=== PATIENT | male | born 1965 | race Hispanic/Latino ===

== ENCOUNTER 2021-10-30 14:07 | Observation (INO) | payer OTHER ==
--- NOTE | 2021-10-30 15:09 | XRay Report ---
CHEST 1 VIEW 10/30/2021 2:02 PM INDICATION / CLINICAL INFORMATION: DIZZY/CP. COMPARISON: None available. FINDINGS: SUPPORT DEVICES: None. HEART / MEDIASTINUM: The heart size and pulmonary vasculature are normal. The aorta is normal in cassie maylin. LUNGS / PLEURA: No significant pulmonary or pleural abnormality. No pneumothorax. ADDITIONAL FINDINGS: No significant additional findings. IMPRESSION: No acute findings. Signer Name: Asad Willson MD Signed: 10/30/2021 3:04 PM Workstation Name: [email or web address]
[2021-10-30] MEDS ORDERED: SODIUM CHLORIDE 0.9% 1000 ML 1,000 ML IV ONE (15:22)
[2021-10-30 15:49] LABS: Basophils % (Auto) 0.4 % (0.0-1.8); Eosinophils # (Auto) 0.2 K/mm3 (0.0-0.4); Hematocrit 40.5 % (35.5-45.6); Hemoglobin 13.5 gm/dl (11.8-15.2); Lymphocytes # (Auto) 1.9 K/mm3 (1.2-5.4); Lymphocytes % (Auto) 17.1 % (13.4-35.0); Mean Corpuscular HGB Conc 33 % (32-34); Mean Corpuscular Volume 88 fl (84-94); Monocytes # (Auto) 0.8 K/mm3 (0.0-0.8); Monocytes % (Auto) 6.8 % (0.0-7.3); Platelet Count 218 K/mm3 (140-440); Red Blood Count 4.58 M/mm3 (3.65-5.03)
[2021-10-30 16:09] LABS: Creatine Kinase MB 1.4 ng/mL (0.0-4.0)
[2021-10-30 16:11] LABS: Alanine Aminotransferase 18 units/L (7-56); Albumin 3.9 g/dL (3.9-5); BUN/Creatinine Ratio 13; Blood Urea Nitrogen 12 mg/dL (9-20); Calcium 8.8 mg/dL (8.4-10.2); Hemolysis Index 11
--- NOTE | 2021-10-30 16:26 | Cat Scan Report ---
CT HEAD WITHOUT CONTRAST INDICATION / CLINICAL INFORMATION: Lightheadedness/Dizziness. TECHNIQUE: All CT scans at this location are performed using CT dose reduction for ALARA by means of automated e xposure control. COMPARISON: None available. FINDINGS: HEMORRHAGE: No evidence of intracranial hemorrhage or extra-axial fluid collection. EXTRA-AXIAL SPACES: Cortical sulci, sylvian fissures and basilar cisterns have an unremarkable appear ance. VENTRICULAR SYSTEM: The third and lateral ventricles are of normal size and configuration. CEREBRAL PARENCHYMA: No areas of abnormal brain parenchymal attenuation are identified. There is no i ndication of recent infarction. MIDLINE SHIFT OR HERNIATION: There is no mass effect. CEREBELLUM / BRAINSTEM: Brainstem and cerebellum have an unremarkable appearance. MIDLINE STRUCTURES:No abnormalities of the pituitary gland or pineal region are identified. INTRACRANIAL VESSELS:No abnormalities are identified on this noncontrast head CT. ORBITS: visualized portions of the orbits have an unremarkable appearance. SOFT TISSUES of HEAD: No significant abnormality. CALVARIUM: Evaluation of bone windows reveals no abnormalities. PARANASAL SINUSES / MASTOID AIR CELLS: Visualized portions of the paranasal sinuses are free from inf lammatory mucosal disease. Mastoid air cells are normally pneumatized. IMPRESSION: 1. Normal head CT without contrast. Signer Name: Alejandro Nicholas MD Signed: 10/30/2021 4:22 PM Workstation Name: [email or web address]
[2021-10-30 18:29] LABS: INR 0.97 (0.87-1.13)
--- NOTE | 2021-10-30 22:17 | Emergency Department Report ---
ED Dizziness HPI - General Chief Complaint: Dizziness Stated Complaint: DIZZINESS Time Seen by Provider: 10/30/21 15:14 Source: patient, EMS Mode of arrival: Stretcher Limitations: No Limitations - History of Present Illness Initial Comments: PT WAS PICKED UP WHILE DRIVING, C/O DIZZINESS X1 DAY. PT IS HAVING NEAR SYNCOPE EVENTS WITH CHEST PAIN , ONLY HAS htN ON LISINOPIL AND d3 VITAMIN MD Complaint: dizziness, lightheadedness -: Gradual, days(s) Timing: unsure History of Same: No History of Trauma: No Severity: mild - Related Data Allergies Allergy/AdvReac Type Severity Reaction Status Date / Time No Known Allergies Allergy Verified 10/30/21 14:10 ED Review of Systems ROS: Stated complaint: DIZZINESS Other details as noted in HPI Constitutional: denies: chills, fever Eyes: denies: eye pain, eye discharge, vision change ENT: denies: ear pain, throat pain Respiratory: denies: cough, shortness of breath, wheezing Cardiovascular: denies: chest pain, palpitations Endocrine: no symptoms reported Gastrointestinal: denies: abdominal pain, nausea, diarrhea Genitourinary: denies: urgency, dysuria Musculoskeletal: denies: back pain, joint swelling, arthralgia Skin: denies: rash, lesions Neurological: denies: headache, weakness, paresthesias Psychiatric: denies: anxiety, depression Hematological/Lymphatic: denies: easy bleeding, easy bruising ED Past Medical Hx - Past Medical History Hx Hypertension: Yes Hx Diabetes: Yes - Social History Smoking Status: Never Smoker ED Physical Exam - General Limitations: No Limitations General appearance: alert, in no apparent distress - Head Head exam: Present: atraumatic, normocephalic - Eye Eye exam: Present: normal appearance - ENT ENT exam: Present: mucous membranes moist - Neck Neck exam: Present: normal inspection - Respiratory Respiratory exam: Present: normal lung sounds bilaterally. Absent: respiratory distress - Cardiovascular Cardiovascular Exam: Present: regular rate, normal rhythm. Absent: systolic murmur, diastolic murmur, rubs, gallop - GI/Abdominal GI/Abdominal exam: Present: soft, normal bowel sounds - Rectal Rectal exam: Present: deferred - Extremities Exam Extremities exam: Present: normal inspection - Back Exam Back exam: Present: normal inspection - Neurological Exam Neurological exam: Present: alert, oriented X3 - Psychiatric Psychiatric exam: Present: normal affect, normal mood - Skin Skin exam: Present: warm, dry, intact, normal color. Absent: rash ED Course Vital Signs 10/30/21 10/30/21 10/30/21 14:09 14:45 15:00 Pulse Rate 96 H 78 Respiratory Rate Blood Pressure Blood Pressure 135/78 136/70 [Left] O2 Sat by Pulse 98 99 95 Oximetry 10/30/21 10/30/21 10/30/21 15:45 16:20 17:05 Pulse Rate 82 74 78 Respiratory Rate Blood Pressure Blood Pressure 129/62 123/62 127/64 [Left] O2 Sat by Pulse 96 96 96 Oximetry 10/30/21 10/30/21 10/30/21 17:40 18:06 20:01 Pulse Rate 78 78 77 Respiratory 20 Rate Blood Pressure Blood Pressure 127/77 123/62 [Left] O2 Sat by Pulse 99 95 Oximetry 10/30/21 10/30/21 10/30/21 20:15 20:31 20:45 Pulse Rate 70 69 77 Respiratory 16 19 13 Rate Blood Pressure Blood Pressure [Left] O2 Sat by Pulse 93 92 96 Oximetry 10/30/21 10/30/21 10/30/21 21:01 21:15 21:31 Pulse Rate 70 97 H 44 L Respiratory 18 12 Rate Blood Pressure 147/67 147/67 147/67 Blood Pressure [Left] O2 Sat by Pulse 93 95 95 Oximetry 10/30/21 10/30/21 21:45 22:01 Pulse Rate 75 71 Respiratory Rate Blood Pressure 147/67 147/67 Blood Pressure [Left] O2 Sat by Pulse 95 93 Oximetry ED Medical Decision Making - Lab Data Result diagrams: 10/30/21 15:30 10/30/21 15:30 Critical care attestation.: If time is entered above; I have spent that time in minutes in the direct care of this critically ill patient, excluding procedure time. ED Disposition Clinical Impression: Chest pain, Dizziness Disposition: ADMITTED INPATIENT Is pt being admited?: Yes Does the pt Need Aspirin: No Condition: Stable Instructions: Nonspecific Chest Pain, Adult Referrals: [facility] [Other] - 3-5 Days
[2021-10-30 22:18] LABS: Bilirubin,Urine NEG (Negative); Blood,Urine NEG (Negative); Color,Urine Straw (Yellow); Mucus,Urine FEW /HPF; Protein,Urine <15 mg/dL mg/dL (Negative); RBC,Urine < 1.0 /HPF (0.0-6.0); Urobilinogen,Urine < 2.0 mg/dL (<2.0); WBC,Urine < 1.0 /HPF (0.0-6.0)
[2021-10-30] MEDS ORDERED: ONDANSETRON 4 MG/2 ML INJ IV PRN (23:09)
[2021-10-30] MEDS ORDERED: MORPHINE 2 MG/1 ML INJ IV PRN (23:09)
[2021-10-30] MEDS ORDERED: ACETAMINOPHEN 325 MG TAB PO PRN ×2 (23:09)
[2021-10-30] MEDS ORDERED: traMADol 50 MG TAB PO PRN (23:09)
[2021-10-30] MEDS ORDERED: MAGNESIUM HYDROXIDE (MOM) ORAL LIQD UDC PO PRN (23:09)
[2021-10-30] MEDS ORDERED: DEXTROSE 50% IN WATER (25GM) 50 ML SYRINGE IV PRN (23:09)
[2021-10-30] MEDS ORDERED: MORPHINE 4 MG/1 ML INJ IV PRN ×2 (23:09)
--- NOTE | 2021-10-30 23:22 | History and Physical Report ---
History of Present Illness Date of examination: 10/30/21 Date of admission: 10/30/2021 Chief complaint: Dizziness Chest Pain History of present illness: 56-year-old male with significant past medical history of hypertension and diabetes mellitus presenting to the emergency room today for evaluation of lightheadedness and chest pain. Symptoms has been ongoing for the past 24 hours. He has felt so dizzy and had a near syncopal episode today. He denies any fever or chills, no nausea vomiting and no abdominal pain. Denies any headache but has been diaphoretic. Patient denies any sick contacts and no recent travel. Denies any contact with anyone with COVID-19. Work-up in the emergency room today chest x-ray was unremarkable. Troponin was negative. EKG shows right bundle branch block. Patient is being admitted for chest pain work-up. Past History Past Medical History: diabetes, hypertension Past Surgical History: No surgical history Social history: no significant social history Family history: no significant family history Medications and Allergies Allergies Allergy/AdvReac Type Severity Reaction Status Date / Time No Known Allergies Allergy Verified 10/30/21 14:10 Review of Systems Constitutional: no fever, no chills Ears, nose, mouth and throat: no nasal congestion, no sore throat Cardiovascular: chest pain, lightheadedness, no palpitations Respiratory: no cough, no shortness of breath Gastrointestinal: no abdominal pain, no nausea, no vomiting, no diarrhea Genitourinary Male: no dysuria, no hematuria, no flank pain Musculoskeletal: no neck pain, no low back pain Integumentary: no rash, no pruritis Neurological: no headaches, no confusion Psychiatric: no anxiety, no depression Endocrine: no polyphagia, no polydipsia, no polyuria, no nocturia Exam - Constitutional Vitals: Temp Pulse Resp BP Pulse Ox 71 12 147/67 93 10/30/21 22:01 10/30/21 21:15 10/30/21 22:01 10/30/21 22:01 General appearance: Present: no acute distress, well-nourished, obese - EENT Eyes: Present: PERRL, EOM intact. Absent: scleral icterus ENT: hearing intact, clear oral mucosa, dentition normal - Neck Neck: Present: supple, normal ROM - Respiratory Respiratory effort: normal Respiratory: bilateral: CTA - Cardiovascular Rhythm: regular Heart Sounds: Present: S1 & S2. Absent: gallop, systolic murmur, diastolic murmur, rub, click - Extremities Extremities: no ischemia, pulses intact, pulses symmetrical, No edema, normal temperature, normal color, Full ROM Peripheral Pulses: within normal limits - Abdominal General gastrointestinal: Present: soft, non-tender, non-distended, normal bowel sounds. Absent: mass - Integumentary Integumentary: Present: clear, warm, dry, normal turgor. Absent: rash - Musculoskeletal Musculoskeletal: strength equal bilaterally - Psychiatric Psychiatric: appropriate mood/affect, intact judgment & insight, memory intact, cooperative - Neurologic Neurologic: CNII-XII intact, no focal deficits, moves all extremities HEART Score - HEART Score Troponin: Troponin T < 0.010 ng/mL (0.00-0.029) 10/30/21 20:43 Results - Labs CBC & Chem 7: 10/30/21 15:30 10/30/21 23:21 Labs: Abnormal lab results 10/30/21 10/30/21 10/30/21 Range/Units 15:30 15:30 21:54 WBC 11.4 H (4.5-11.0) K/mm3 Seg Neutrophils % 73.7 H (40.0-70.0) % Seg Neutrophils # 8.4 H (1.8-7.7) K/mm3 Total Protein 6.1 L (6.3-8.2) g/dL Urine pH 8.0 H (5.0-7.0) Assessment and Plan - Patient Problems (1) Chest pain Current Visit: Yes Status: Acute Plan to address problem: Patient admitted and placed on telemetry. We will check serial cardiac enzymes. Patient started on daily aspirin, sublingual nitroglycerin and IV morphine as ne eded for chest pain. We will schedule patient for echocardiogram and stress test. Consult placed to cardiology for evaluation. (2) Hypertension Current Visit: Yes Status: Acute Plan to address problem: We will resume routine home medications and monitor vital signs closely. (3) DVT prophylaxis Current Visit: Yes Status: Acute Plan to address problem: Patient placed on subcutaneous heparin. (4) Full code status Current Visit: Yes Status: Acute Plan to address problem: Patient is full code.
[2021-10-30] MEDS ORDERED: DEXTROSE 10% *Hypoglycemia IV PRN (23:25)
[2021-10-30 23:58] LABS: BUN/Creatinine Ratio 12; Blood Urea Nitrogen 11 mg/dL (9-20); Calcium 8.6 mg/dL (8.4-10.2); Hemolysis Index 6
[2021-10-31 06:23] LABS: Basophils % (Auto) 0.4 % (0.0-1.8); Eosinophils # (Auto) 0.4 K/mm3 (0.0-0.4); Eosinophils % (Auto) 5.8 % (0.0-4.3); Hematocrit 40.8 % (35.5-45.6); Hemoglobin 13.4 gm/dl (11.8-15.2); Lymphocytes # (Auto) 2.3 K/mm3 (1.2-5.4); Lymphocytes % (Auto) 30.7 % (13.4-35.0); Mean Corpuscular HGB Conc 33 % (32-34); Mean Corpuscular Volume 90 fl (84-94); Monocytes # (Auto) 0.8 K/mm3 (0.0-0.8); Monocytes % (Auto) 10.2 % (0.0-7.3); Platelet Count 197 K/mm3 (140-440); Red Blood Count 4.56 M/mm3 (3.65-5.03); Red Cell Distribution Width 14.5 % (13.2-15.2)
[2021-10-31 06:40] LABS: BUN/Creatinine Ratio 13; Blood Urea Nitrogen 10 mg/dL (9-20); Calcium 8.8 mg/dL (8.4-10.2); Hemolysis Index 8
[2021-10-31] MEDS: INSULIN LISPRO 100 UNIT/ML SUB-Q SCH ×4 (07:30→21:00)
[2021-10-31] MEDS ORDERED: REGADENOSON 0.4 MG/5 ML INJ IV ONE (08:05)
--- NOTE | 2021-10-31 08:54 | Progress Note ---
Assessment and Plan Assessment and plan: 56-year-old male with significant past medical history of hypertension and diabetes mellitus presenting to the emergency room today for evaluation of lightheadedness and chest pain. Chest pain Diabetes mellitus type 2 Hypertension 10/31/2021. Patient to undergo Lexiscan stress test this morning. We will follow-up results. Continue to follow serial EKGs and troponin levels. Cardiology consultation is also pending History Interval history: No new issues overnight. Hospitalist Physical - Constitutional Vitals: Temp Pulse Resp BP Pulse Ox 98.3 F 68 16 127/70 94 10/31/21 07:38 10/31/21 07:38 10/31/21 03:51 10/31/21 07:38 10/31/21 07:38 General appearance: Present: no acute distress, well-nourished, obese - EENT Eyes: Present: PERRL, EOM intact ENT: hearing intact, clear oral mucosa, dentition normal - Neck Neck: Present: supple, normal ROM - Respiratory Respiratory effort: normal Respiratory: bilateral: CTA - Cardiovascular Rhythm: regular Heart Sounds: Present: S1 & S2. Absent: gallop, rub - Extremities Extremities: no ischemia, No edema, Full ROM - Abdominal General gastrointestinal: soft, non-tender, non-distended, normal bowel sounds - Integumentary Integumentary: Present: clear, warm, dry - Neurologic Neurologic: CNII-XII intact, moves all extremities HEART Score - HEART Score Troponin: Troponin T < 0.010 ng/mL (0.00-0.029) 10/31/21 05:50 Results - Labs CBC & Chem 7: 10/31/21 05:50 10/31/21 05:50 Labs: Laboratory Last Values WBC 7.4 K/mm3 (4.5-11.0) 10/31/21 05:50 RBC 4.56 M/mm3 (3.65-5.03) 10/31/21 05:50 Hgb 13.4 gm/dl (11.8-15.2) 10/31/21 05:50 Hct 40.8 % (35.5-45.6) 10/31/21 05:50 MCV 90 fl (84-94) 10/31/21 05:50 MCH 29 pg (28-32) 10/31/21 05:50 MCHC 33 % (32-34) 10/31/21 05:50 RDW 14.5 % (13.2-15.2) 10/31/21 05:50 Plt Count 197 K/mm3 (140-440) 10/31/21 05:50 Lymph % (Auto) 30.7 % (13.4-35.0) 10/31/21 05:50 [place] % (Auto) 10.2 % (0.0-7.3) H 10/31/21 05:50 Eos % (Auto) 5.8 % (0.0-4.3) H 10/31/21 05:50 Baso % (Auto) 0.4 % (0.0-1.8) 10/31/21 05:50 Lymph # (Auto) 2.3 K/mm3 (1.2-5.4) 10/31/21 05:50 [place] # (Auto) 0.8 K/mm3 (0.0-0.8) 10/31/21 05:50 Eos # (Auto) 0.4 K/mm3 (0.0-0.4) 10/31/21 05:50 Baso # (Auto) 0.0 K/mm3 (0.0-0.1) 10/31/21 05:50 Seg Neutrophils % 52.9 % (40.0-70.0) 10/31/21 05:50 Seg Neutrophils # 3.9 K/mm3 (1.8-7.7) 10/31/21 05:50 PT 13.9 Sec. (12.2-14.9) 10/30/21 17:46 INR 0.97 (0.87-1.13) 10/30/21 17:46 Sodium 143 mmol/L (137-145) 10/31/21 05:50 Potassium 4.8 mmol/L (3.6-5.0) 10/31/21 05:50 Chloride 105.6 mmol/L (98-107) 10/31/21 05:50 Carbon Dioxide 28 mmol/L (22-30) 10/31/21 05:50 Anion Gap 14 mmol/L 10/31/21 05:50 BUN 10 mg/dL (9-20) 10/31/21 05:50 Creatinine 0.8 mg/dL (0.8-1.3) 10/31/21 05:50 Estimated GFR > 60 ml/min 10/31/21 05:50 BUN/Creatinine Ratio 13 % 10/31/21 05:50 Glucose 107 mg/dL (75-100) H 10/31/21 05:50 Calcium 8.8 mg/dL (8.4-10.2) 10/31/21 05:50 Total Bilirubin 0.40 mg/dL (0.1-1.2) 10/30/21 15:30 AST 17 units/L (5-40) 10/30/21 15:30 ALT 18 units/L (7-56) 10/30/21 15:30 Alkaline Phosphatase 50 units/L (35-129) 10/30/21 15:30 Total Creatine Kinase 90 units/L (55-170) 10/30/21 15:30 CK-MB (CK-2) 1.4 ng/mL (0.0-4.0) 10/30/21 15:30 CK-MB (CK-2) Rel Index 1.5 (0-4) 10/30/21 15:30 Troponin T < 0.010 ng/mL (0.00-0.029) 10/31/21 05:50 Total Protein 6.1 g/dL (6.3-8.2) L 10/30/21 15:30 Albumin 3.9 g/dL (3.9-5) 10/30/21 15:30 Albumin/Globulin Ratio 1.8 % 10/30/21 15:30 Urine Color Straw (Yellow) 10/30/21 21:54 Urine Turbidity Clear (Clear) 10/30/21 21:54 Urine pH 8.0 (5.0-7.0) H 10/30/21 21:54 Ur Specific [place] 1.009 (1.003-1.030) 10/30/21 21:54 Urine Protein <15 mg/dl mg/dL (Negative) 10/30/21 21:54 Urine Glucose (UA) Neg mg/dL (Negative) 10/30/21 21:54 Urine Ketones Neg mg/dL (Negative) 10/30/21 21:54 Urine Blood Neg (Negative) 10/30/21 21:54 Urine Nitrite Neg (Negative) 10/30/21 21:54 Urine Bilirubin Neg (Negative) 10/30/21 21:54 Urine Urobilinogen < 2.0 mg/dL (<2.0) 10/30/21 21:54 Ur Leukocyte Esterase Neg (Negative) 10/30/21 21:54 Urine WBC (Auto) < 1.0 /HPF (0.0-6.0) 10/30/21 21:54 Urine RBC (Auto) < 1.0 /HPF (0.0-6.0) 10/30/21 21:54 U Epithel Cells (Auto) < 1.0 /HPF (0-13.0) 10/30/21 21:54 Urine Mucus Few /HPF 10/30/21 21:54 Vargas/IV: Voiding Method Toilet Active Medications - Current Medications Current Medications: Generic Name Dose Route Start Last Admin Trade Name Freq PRN Reason Stop Dose Admin Acetaminophen 650 mg 10/30/21 23:09 Acetaminophen 325 Mg Tab PO Q4H PRN Pain MILD(1-3)/Fever >100.5/TORRES Aspirin 325 mg 10/31/21 10:00 Aspirin Ec 325 Mg Tab PO QDAY KIRSTIN Dextrose 0 ml 10/30/21 23:25 Dextrose 10% *Hypoglycemia IV PRN PRN Hypoglycemia Insulin Human Lispro 0 unit 10/31/21 07:30 Insulin Lispro 100 Unit/Ml SUB-Q ACHS KIRSTIN Protocol Magnesium Hydroxide 30 ml 10/30/21 23:09 Magnesium Hydroxide (Mom) Oral Liqd Udc PO Q4H PRN Constipation Morphine Sulfate 2 mg 10/30/21 23:09 Morphine 2 Mg/1 Ml Inj IV Q4H PRN Pain, Moderate (4-6) Morphine Sulfate 4 mg 10/30/21 23:09 Morphine 4 Mg/1 Ml Inj IV Q4H PRN Pain , Severe (7-10) Morphine Sulfate 2 mg 10/30/21 23:09 Morphine 4 Mg/1 Ml Inj IV Q5MIN PRN Chest Pain unrelieved by NTG Ondansetron HCl 4 mg 10/30/21 23:09 Ondansetron 4 Mg/2 Ml Inj IV Q8H PRN Nausea And Vomiting Sodium Chloride 10 ml 10/31/21 10:00 Sodium Chloride 0.9% 10 Ml Flush Syringe IV BID KIRSTIN Sodium Chloride 10 ml 10/30/21 23:09 Sodium Chloride 0.9% 10 Ml Flush Syringe IV PRN PRN LINE FLUSH Tramadol HCl 50 mg 10/30/21 23:09 Tramadol 50 Mg Tab PO Q6H PRN Pain, Moderate (4-6)
[2021-10-31] MEDS: ASPIRIN EC 325 MG TAB PO SCH (13:15)
--- NOTE | 2021-10-31 13:49 | Vascular Lab Report ---
DUPLEX DOPPLER ULTRASOUND CAROTID, BILATERAL INDICATION / CLINICAL INFORMATION: dizziness. COMPARISON: None available. FINDINGS: RIGHT CAROTID: - PLAQUE ESTIMATE (%): < 50% - CCA velocity: 69 cm/sec. - ICA peak systolic velocity: 88 cm/sec. - ICA/CCA PSV Ratio: 1.3 Right Vertebral Artery: Antegrade flow. LEFT CAROTID: - PLAQUE ESTIMATE: < 50% - CCA velocity: 91 cm/sec. - ICA peak systolic velocity: 80 cm/sec. - ICA/CCA PSV Ratio: 0.9 Left Vertebral Artery: Antegrade flow. IMPRESSION: 1. Right Internal Carotid Artery: Less than 50% diameter stenosis. 2. Left Internal Carotid Artery: Less than 50% diameter stenosis. Velocity criteria are extrapolated from diameter data as defined by the Society of Radiologists in [facility] Consensus Conference, Radiology 2003; 229;340-346. NO STENOSIS (NORMAL) * Plaque = none; ICA PSV < 125 cm/sec; ICA/CCA PSV Ratio < 2.0 <50% STENOSIS * Plaque < 50%; ICA PSV < 125 cm/sec; ICA/CCA PSV Ratio < 2.0 50-69% STENOSIS * Plaque > 50%; ICA PSV = 125-230 cm/sec; ICA/CCA PSV Ratio = 2.0-4.0 >70% BUT <100% STENOSIS * Plaque > 50%; ICA PSV > 230 cm/sec; ICA/CCA PSV Ratio > 4.0 NEAR OCCLUSION * Plaque = visible lumen; ICA PSV = high/low/none; ICA/CCA PSV Ratio = variable TOTAL OCCLUSION * Plaque = no lumen; ICA PSV = none; ICA/CCA PSV Ratio = N/A Signer Name: Joao Faria MD Signed: 10/31/2021 1:45 PM Workstation Name: [employer]
--- NOTE | 2021-10-31 13:51 | Consultation ---
History of Present Illness Consult date: 10/31/21 Consult reason: chest pain, other (Dizziness) History of present illness: The patient is a 56-year-old man with a history of hypertension, controlled on lisinopril. No prior cardiac history. 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 There was no vertigo, he said he felt lightheaded as if his "blood sugar was low". There was no chest pain or shortness of breath at that time. Later in the day, he began to experience left lower chest pain which was not exertional, but eventually prompted him to come to the emergency room for further evaluation. He has no history of diabetes, comorbidities only notable for a hiatal hernia and gastroesophageal reflux. Work-up so far in the hospital, ECG was normal sinus rhythm, no acute ST or T wave changes, normal ECG. Troponin levels were negative x4. Chest x-ray was normal-sized cardiac silhouette and clear lungs. Echocardiogram done today showed normal left ventricular systolic function, but major finding of mild to moderate aortic regurgitation of a trileaflet valve with normal excursion. Today, he underwent an exercise thallium stress test during which he exercised for 6 minutes of a Robbie protocol, no chest pain no ST changes. Myocardial perfusion images are pending. Past History Past Medical History: hypertension Past Surgical History: No surgical history Social history: no significant social history Family history: no significant family history Medications and Allergies Allergies Allergy/AdvReac Type Severity Reaction Status Date / Time No Known Allergies Allergy Verified 10/30/21 14:10 Active Meds: Active Medications Acetaminophen (Acetaminophen 325 Mg Tab) 650 mg PO Q4H PRN PRN Reason: Pain MILD(1-3)/Fever >100.5/TORRES Aspirin (Aspirin Ec 325 Mg Tab) 325 mg PO QDAY [facility] Last Admin: 10/31/21 13:15 Dose: 325 mg Dextrose (Dextrose 10% *Hypoglycemia) 0 ml IV PRN PRN PRN Reason: Hypoglycemia Insulin Human Lispro (Insulin Lispro 100 Unit/Ml) 0 unit SUB-Q ACHS [facility]; Protocol Last Admin: 10/31/21 12:51 Dose: Not Given Magnesium Hydroxide (Magnesium Hydroxide (Mom) Oral Liqd Udc) 30 ml PO Q4H PRN PRN Reason: Constipation Morphine Sulfate (Morphine 2 Mg/1 Ml Inj) 2 mg IV Q4H PRN PRN Reason: Pain, Moderate (4-6) Morphine Sulfate (Morphine 4 Mg/1 Ml Inj) 4 mg IV Q4H PRN PRN Reason: Pain , Severe (7-10) Morphine Sulfate (Morphine 4 Mg/1 Ml Inj) 2 mg IV Q5MIN PRN PRN Reason: Chest Pain unrelieved by NTG Ondansetron HCl (Ondansetron 4 Mg/2 Ml Inj) 4 mg IV Q8H PRN PRN Reason: Nausea And Vomiting Sodium Chloride (Sodium Chloride 0.9% 10 Ml Flush Syringe) 10 ml IV BID KIRSTIN Last Admin: 10/31/21 13:16 Dose: 10 ml Sodium Chloride (Sodium Chloride 0.9% 10 Ml Flush Syringe) 10 ml IV PRN PRN PRN Reason: LINE FLUSH Tramadol HCl (Tramadol 50 Mg Tab) 50 mg PO Q6H PRN PRN Reason: Pain, Moderate (4-6) Review of Systems Cardiovascular: chest pain, lightheadedness, no orthopnea, no palpitations, no rapid/irregular heart beat, no edema, no syncope, no shortness of breath Physical Examination Vital Signs Pulse BP Pulse Ox 96 H 135/78 98 10/30/21 14:09 10/30/21 14:09 10/30/21 14:09 General appearance: no acute distress HEENT: Positive: PERRL Neck: Positive: neck supple Cardiac: Positive: Reg Rate and Rhythm Lungs: Positive: clear to auscultation Neuro: Positive: Grossly Intact Abdomen: Positive: Soft Male genitourinary: Positive: deferred Skin: Positive: Clear Extremities: Absent: edema Results 10/31/21 05:50 10/31/21 05:50 Cardiac Enzymes 10/30/21 10/30/21 Range/Units 15:30 15:30 AST 17 (5-40) units/L CK-MB (CK-2) 1.4 (0.0-4.0) ng/mL Coagulation 10/30/21 Range/Units 17:46 PT 13.9 (12.2-14.9) Sec. INR 0.97 (0.87-1.13) CBC 10/30/21 10/31/21 Range/Units 15:30 05:50 WBC 11.4 H 7.4 (4.5-11.0) K/mm3 RBC 4.58 4.56 (3.65-5.03) M/mm3 Hgb 13.5 13.4 (11.8-15.2) gm/dl Hct 40.5 40.8 (35.5-45.6) % Plt Count 218 197 (140-440) K/mm3 Lymph # (Auto) 1.9 2.3 (1.2-5.4) K/mm3 [place] # (Auto) 0.8 0.8 (0.0-0.8) K/mm3 Eos # (Auto) 0.2 0.4 (0.0-0.4) K/mm3 Baso # (Auto) 0.0 0.0 (0.0-0.1) K/mm3 Comprehensive Metabolic Panel 10/30/21 10/30/21 10/31/21 Range/Units 15:30 23:21 05:50 Sodium 137 141 143 (137-145) mmol/L Potassium 4.1 4.9 4.8 (3.6-5.0) mmol/L Chloride 100.1 101.8 105.6 (98-107) mmol/L Carbon Dioxide 26 29 28 (22-30) mmol/L BUN 12 11 10 (9-20) mg/dL Creatinine 0.9 0.9 0.8 (0.8-1.3) mg/dL Glucose 92 112 H 107 H (75-100) mg/dL Calcium 8.8 8.6 8.8 (8.4-10.2) mg/dL AST 17 (5-40) units/L ALT 18 (7-56) units/L Alkaline Phosphatase 50 (35-129) units/L Total Protein 6.1 L (6.3-8.2) g/dL Albumin 3.9 (3.9-5) g/dL EKG interpretations - Telemetry EKG Rhythm: Sinus Rhythm Assessment and Plan - Patient Problems (1) Chest pain Current Visit: Yes Status: Acute Plan to address problem: Chest pain is atypical, serial ECGs are normal, troponin levels are normal x4. He has completed an exercise thallium stress test, myocardial perfusion images are pending.
--- NOTE | 2021-10-31 14:32 | Nuclear Medicine Report ---
APPROVED REPORT Exam: Nuclear Stress Test Indication: Chest pain [facility] Ht: 5 ft 11 in Wt: 315 lbs BSA: 2.56 m2 HR: 65 bpmBP: 143/80 mmHgBMI: 43.92 Rhythm: Sinus Rhythm, PVC's Stress Test Details Stress Test: Exercise stress testing was performed using a Robbie protocol. HR Resting HR: 66 bpm Max HR Achieved: 147 bpm Max Heart Rate (APMHR): 165 bpm Target HR (85% APMHR): 140 bpm % of APMHR: 89 Recovery HR: 84 bpm HR response to stress: Normal HR response to stress BP Resting BP: 143/74 mmHg Max BP: 165/84 mmHg Recovery BP: 155/77 mmHg BP response to stress: Normal blood pressure response to stress. ECG Resting ECG: Sinus Rhythm Stress ECG: Sinus Tachycardia ST Change: None Arrhythmia: None Recovery ECG: Sinus Rhythm Recovery ST Change: None Recovery Arrhythmia: Occasional VPC Clinical Reason for Termination: Fatigue Stress Symptoms: None Exercise duration: 6 min 02 sec Exercise capacity: 7.2 METs Overall Exercise Capacity for Age: Average Stress ECG Conclusion No chest pain with exercise to 7 METS, no ST changes of ischemia. Myocardial perfusion images are pending. NM EXAM: Myocardial Perfusion REST/STRESS Imaging Protocol: Rest Tc-99m/Stress Tc-99m 1 day Resting Data Rest SPECT myocardial perfusion imaging was performed in supine position 45 minutes following the intravenous injection of 10 mCi of Tc-99m Myoview. Time of rest injection: 0815 Exercise Stress At peak stress, the patient was injected intravenously with 28mCi of Tc-99m Myoview. Time of stress injection: 1145 Gated Stress SPECT was performed 20 minutes after stress injection. The images were gated to evaluate regional wall motion and calculate left ventricular ejection fraction. Study Quality Study: excellent Lung Uptake: Normal Study Data TID = 0.95. Normal rest and stress myocardial perfusion images. Mild diaphragmatic attenuation artifact is noted Perfusion Wall Motion The rest and stress images show normal left ventricular wall motion. Left ventricular ejection fraction 50%. Nuclear Conclusion ECG Findings: negative for ischemia Clinical Findings: negative for ischemia Nuclear Findings: negative for ischemia Exercise Capacity: normal Left Ventricular Function: normal Risk Study: low Mild diaphragmatic attenuation artifact, otherwise normal myocardial perfusion in all segments, well-preserved left ventricular systolic function, ejection fraction 50%. Negative study. Conclusion No chest pain with exercise to 7 METS, no ST changes of ischemia. Myocardial perfusion images are pending.
[2021-10-31] MEDS: MECLIZINE 25 MG TAB PO SCH (20:53)
[2021-11-01] MEDS: INSULIN LISPRO 100 UNIT/ML SUB-Q SCH (07:32)
--- NOTE | 2021-11-01 07:50 | Discharge Summary ---
Providers - Providers Date of Admission: 10/30/21 23:10 Date of discharge: 11/01/21 Attending physician: TORIE NUNEZ 10/30/21 Consult to Cardiac Rehabilitation [CONS] Routine Reason For Exam: Phase I 10/30/21 23:10 Consult to Cardiology [CONS] Routine Consulting Provider: SAMSON BROWNING Reason For Exam: chest pain Consult to Dietitian/Nutrition [CONS] Routine Physician Instructions: Reason For Exam: Reason for Consult: Diet education Hospitalization Reason for admission: CP and dizziness Condition: Stable Hospital course: 56-year-old male with hypertension who presented through the emergency department with complaint of chest pain and dizziness. Patient had a work-up that revealed ECG normal sinus rhythm with no ST-T wave changes, cardiac isoenzymes were found to be negative, chest x-ray no acute findings, echocardiogram revealed left ventricular systolic function normal but major finding of mild to moderate aortic regurgitation of a trileaflet valve with normal excursion. Patient also underwent exercise stress test and the perfusion imaging studies are pending and if found to be negative patient would likely discharge home. Carotid ultrasounds found to be negative. Dedicated discharge time 32 minutes. Disposition: 30 STILL A PATIENT Final Discharge Diagnosis (Prints w/discharge instructions): Chest pain with etiology likely secondary to GERD, hypertension Core Measure Documentation - Palliative Care Palliative Care/ Comfort Measures: Not Applicable - Core Measures Any of the following diagnoses?: none Exam - Constitutional Vitals: Temp Pulse Resp BP Pulse Ox 98.2 F 70 18 131/70 96 11/01/21 04:16 11/01/21 04:16 11/01/21 04:16 11/01/21 04:16 11/01/21 07:34 General appearance: Present: no acute distress, well-nourished - EENT Eyes: Present: PERRL ENT: hearing intact, clear oral mucosa - Neck Neck: Present: supple, normal ROM - Respiratory Respiratory effort: normal Respiratory: bilateral: CTA - Cardiovascular Heart Sounds: Present: S1 & S2. Absent: rub, click - Extremities Extremities: pulses symmetrical, No edema Peripheral Pulses: within normal limits - Abdominal General gastrointestinal: Present: soft, non-tender, non-distended, normal bowel sounds Male genitourinary: Present: normal - Integumentary Integumentary: Present: clear, warm, dry - Musculoskeletal Musculoskeletal: gait normal, strength equal bilaterally - Psychiatric Psychiatric: appropriate mood/affect, intact judgment & insight - Neurologic Neurologic: CNII-XII intact, moves all extremities Plan Activity: advance as tolerated Weight Bearing Status: Weight Bear as Tolerated Diet: low fat, low cholesterol, low salt Follow up with: [facility] [Other] - 3-5 Days
[2021-11-01] MEDS: ASPIRIN EC 325 MG TAB PO SCH (09:24)
[2021-11-01] MEDS: MECLIZINE 25 MG TAB PO SCH (09:24)
[2021-11-01 12:50] VITALS: BP 154/79
--- NOTE | 2021-11-01 14:17 | Progress Note ---
Assessment and Plan - Patient Problems (1) Chest pain Current Visit: Yes Status: Acute Plan to address problem: Chest pain is atypical, serial ECGs are normal, troponin levels are normal x4. Exercise thallium stress test was normal, at 6 minutes of Robbie protocol. 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 Subjective Date of service: 11/01/21 Principal diagnosis: Dizziness and chest pain Interval history: Patient looks and feels better, no further chest pain, no further dizziness. As reported, he is exercise thallium stress test was normal, exercised for 6 minutes of a Robbie protocol. Objective Vital Signs Temp Pulse Resp BP Pulse Ox 11/01/21 11:52 97.7 F 72 18 154/79 96 11/01/21 08:00 97.9 F 71 18 137/77 93 11/01/21 07:34 96 11/01/21 04:16 98.2 F 70 18 131/70 93 11/01/21 03:26 96 10/31/21 23:36 98.3 F 74 19 118/69 96 10/31/21 19:54 97.9 F 68 20 121/69 94 10/31/21 17:00 76 10/31/21 16:11 98.3 F 76 20 146/74 93 - Physical Examination General: No Apparent Distress HEENT: Positive: PERRL Neck: Positive: neck supple Cardiac: Positive: Reg Rate and Rhythm Lungs: Positive: clear to auscultation Neuro: Positive: Grossly Intact Abdomen: Positive: Soft Skin: Positive: Clear Extremities: Absent: edema
--- NOTE | 2021-11-01 17:51 | Electrocardiograph Report ---
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
--- NOTE | 2021-11-01 17:53 | Electrocardiograph Report ---
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
--- NOTE | 2021-11-01 17:54 | Electrocardiograph Report ---
[facility] Test Date: 2021-10-31 Test Time: 07:27:56 Pat Name: JULI GUERRERO Department: Room: A457 1 Gender: M Cio: BENITO : 1965 Requested By: TANJA VALERIO Order Number: [id number] Reading MD: Meri Cage Measurements Intervals [place] Rate: 63 P: 58 [place]: 165 QRS: -38 QRSD: 119 T: 72 QT: 425 QTc: 435 Interpretive Statements Sinus rhythm Left axis deviation Compared to ECG 10/30/2021 19:29:45 No significant change Electronically Signed On 11-01-2021 17:54:28 EDT by Meri Cage
== END 2021-11-01 14:54 | disposition home or self-care (01) ==
LOC: ED 14:07 → INTOOBSV 23:10 → 4A 23:10
PROVIDERS: ADMIT Internal Medicine Geriatric Medicine; ATTEND Hospitalist
DX: R07.89 Other chest pain (principal); I10 Essential (primary) hypertension; E11.9 Type 2 diabetes mellitus without complications; K21.9 Gastro-esophageal reflux disease without esophagitis; R42 Dizziness and giddiness; Z79.4 Long term (current) use of insulin; Z79.82 Long term (current) use of aspirin
CPT/HCPCS: 36415; 70450; 71045; 78452; 80048; 80053; 81001; 82550; 82553; 84484; 85025; 85379; 85610; 93005; 93017; 93880; 96360; 99285; A9502; C8929; G0378; J7030; 93306; Q0162